=== PATIENT | male | born 1970 | race Caucasian/White ===

== ENCOUNTER 2019-12-05 15:59 | Outpatient (CLI) | payer OTHER, SELFPAY ==
[2019-12-05 16:19] LABS: Add Urine Microscopic? YES; Appearance Urine Cloudy (Clear); Bacteria Urine Trace /hpf; Bilirubin Urine Negative (Negative); Blood Urine Negative (Negative); Color Urine Yellow (Yellow); Glucose Urine UA Negative (Negative); Ketones Urine Negative (Negative); Leukocyte Esterase Ur Negative LEU/UL (NEGATIVE); Mucus Urine Rare /lpf; Nitrate Urine Negative (Negative); Protein Urine Negative (Negative); Urobilinogen Urine Negative mg/dL (<2.0); WBC Urine 0-3 /hpf (0-3)
== END 2019-12-05 16:00 | disposition home or self-care (01) ==
PROVIDERS: PCP Internal Medicine; Visit Provider Internal Medicine
DX: R31.9 Hematuria, unspecified (principal)
CPT/HCPCS: 81001

== ENCOUNTER 2019-12-17 11:03 | Outpatient (CLI) | payer OTHER, SELFPAY ==
--- NOTE | ~2019-12-17 | CT_ITS ---
EXAMINATION: CT abdomen wo con EXAM DATE: 12/17/2019 11:34 INDICATION: Ventral hernia. TECHNIQUE: Spiral CT of the abdomen was performed without contrast. Axial, coronal and sagittal bella ges were reviewed. The dose-length product (DLP) for this examination was 694.75 mGy-cm. The exposu re was tailored according to patient size (auto mA exposure control), and iterative reconstruction (A SIR) was used as additional dose reduction technique. There is no prior study for comparison. FINDINGS: There is hepatic steatosis without suspicious focal lesion identified. Spleen, adrenal glan ds, pancreas are unremarkable. Gallbladder is unremarkable. No biliary obstruction. There is 2 mm left inferior calyceal stone. There is no retroperitoneal lymphadenopathy. Small umbilical fat-co ntaining hernia. The appendix is normal. The stomach and small bowel are unremarkable. There is expected amount of c olonic stool. No free intraperitoneal gas. The heart is normal in size. There are no pericardial or pleural effusions. The lung bases are unremarkable. The bones are unremarkable. IMPRESSION: 1. Punctate left nephrolithiasis. 2. Small umbilical fat-containing hernia. 3. Hepatic steatosis. Reviewed, dictated and finalized at location A.
== END 2019-12-17 11:04 | disposition home or self-care (01) ==
PROVIDERS: PCP Internal Medicine; Visit Provider Internal Medicine
DX: K43.9 Ventral hernia without obstruction or gangrene (principal); N20.0 Calculus of kidney; K42.9 Umbilical hernia without obstruction or gangrene; K76.0 Fatty (change of) liver, not elsewhere classified
CPT/HCPCS: 74150

== ENCOUNTER → 2019-12-25 11:51 | Outpatient (REF) | payer OTHER, SELFPAY | LOC: ANHLAB 11:51 | PROVIDERS: PCP Internal Medicine; Visit Provider Nurse Practitioner | DX: L82.1 Other seborrheic keratosis (principal) | CPT/HCPCS: 88305 ==

== ENCOUNTER → 2021-02-07 01:58 | Outpatient (CLI) | payer OTHER, SELFPAY ==
[2021-02-07 17:43] LABS: SARS-CoV-2 RNA PCR Negative
== END ==
PROVIDERS: PCP Internal Medicine; Visit Provider Surgery
DX: Z01.812 Encounter for preprocedural laboratory examination (principal); Z20.822 Contact with and (suspected) exposure to COVID-19
CPT/HCPCS: C9803; U0003; U0005

== ENCOUNTER 2021-07-11 11:37 | Outpatient (CLI) | payer OTHER, SELFPAY ==
--- NOTE | 2021-07-11 11:49 | ECG_ITS ---
Measurements Intervals [place] Rate: 77 P: 42 IA: 192 QRS: 68 QRSD: 91 T: 37 QT: 364 QTc: 413 Interpretive Statements SINUS RHYTHM NORMAL ECG Electronically Signed On 07-11-2021 12:58:11 STRAWHAT SIZER by Matty Bright D.O.
== END 2021-07-11 11:38 | disposition home or self-care (01) ==
LOC: ANHCARD 11:39
PROVIDERS: PCP Internal Medicine; Visit Provider Internal Medicine
DX: I10 Essential (primary) hypertension (principal)
CPT/HCPCS: 93005

== ENCOUNTER 2021-09-27 00:37 | Day surgery (SDC) | payer OTHER, SELFPAY ==
[2021-09-21 10:06] VITALS: BMI 35.4
[2021-09-27 07:24] VITALS: BP 128/79; PULSE 85; RESP 18; TEMP 36.4; O2SAT 97
[2021-09-27] MEDS: LACTATED RINGERS 1,000 ML 150 ML IV CONT (07:35)
[2021-09-27 07:36] LABS: Glucose Point of Care 114 mg/dl (65-105)
--- NOTE | 2021-09-27 08:08 | WPDANESEPPF ---
Anes - Initial Pre Proc Eval Procedure: Operation Date: 09/27/21 08:30 Proposed Procedures p Screening Colonoscopy - Souleymane Mccoy MD Date/Time: 09/27/21 08:08 Surgeon: Souleymane Mccoy MD Pre Op Diagnosis: neoplasm screening Patient Data Age: 51 Gender: M Height: 1.78 m Weight: 110.9 kg Last Vital Signs Temp 36.4 C L 09/27/21 07:24 Pulse 85 09/27/21 07:24 Resp 18 09/27/21 07:24 BP 128/79 09/27/21 07:24 Pulse Ox 97 09/27/21 07:24 Allergies Allergy/AdvReac Type Severity Reaction Status Date / Time Penicillins Allergy Unknown Hives Verified 09/27/21 07:23 Home Medications Medication Instructions Recorded Confirmed Type ascorbic acid (vitamin C) 500 mg 500 mg PO DAILY 08/13/19 09/21/21 History capsule,extended release vitamin E (dl, acetate) 45 mg (100 100 unit PO DAILY 02/18/20 09/21/21 History unit) capsule cholecalciferol (vitamin D3) 50 mcg PO DAILY 02/01/21 09/21/21 History lisinopril 40 mg tablet 40 mg PO DAILY #90 tablet 07/11/21 09/21/21 Rx metformin 500 mg tablet 500 mg PO BID 90 Days #180 tablet 07/11/21 09/21/21 Rx rosuvastatin 5 mg tablet 5 mg PO DAILY #90 tablet 07/22/21 09/21/21 Rx amlodipine 2.5 mg tablet 2.5 mg PO DAILY #90 tablet 08/09/21 09/21/21 Rx Laboratory Tests 09/27/21 07:33 POC Capillary Glucose 114 mg/dl H mg/dl (65-105) Patient hx anesthesia problems: none Family hx anesthesia problems: none Results Review: All pre-operative results and documents have been reviewed as part of the pre-operative evaluation. [facility] Past Medical History Medical History Actinic keratosis Dyslipidemia Essential hypertension LORRIE (obstructive sleep apnea) Surgical History Surgical History History of carpal tunnel release Family History Family History Mother Family history of malignant neoplasm of breast in first degree relative Family history of Hodgkin's lymphoma Hypertension Social History Social History Smoking status: Never smoker Second hand tobacco smoke exposure: No Alcohol intake: current Drinks per week: 12 Substance use type: does not use Living arrangements: with family Spiritual care concerns: No Anes - Eval Final PreProcedure Day of Procedure 09/27/21 08:08 Patient weight: obese Heart: regular rate and rhythm Lungs: clear to auscultation Airway: Mallampati scale class II Neurological: alert and oriented Last oral intake: >/= 8 hours ASA classification: III Emergent: no Anesthetic plan: proceed Anesthesia type and monitoring: general GIVS and standard monitoring Results Review: All pre-operative results and documents have been reviewed as part of the pre-operative evaluation. Informed Consent: The patient's anesthetic plan and its attendant risks and benefits were discussed with the patient/family/POA. Questions were solicited and answers provided to the satisfaction of the patient/family/POA.
--- NOTE | 2021-09-27 08:15 | PM.HPGS ---
History of Present Illness History of Present Illness Consent: Risks, benefits, and alternatives have been discussed and questions answered. Patient agrees to proceed with procedure. Chief complaint: neoplasm screening Narrative: Ramesh Jang is a 51 year old male here for first screening colonoscopy Review of Systems Constitutional: Constitutional: Denies headache(s) and Denies weakness Eyes: Eyes: Denies blurry vision ENT: Reports Normal hearing present, Denies headache(s) and Denies neck pain Cardiovascular: Cardiovascular: Denies chest pain and Denies dyspnea Respiratory: Respiratory: Denies dyspnea Gastrointestinal: Gastrointestinal: Reports no additional gastrointestinal complaints Genitourinary: Genitourinary: Denies dysuria Musculoskeletal: Musculoskeletal: Denies neck pain Integumentary/Breasts: Skin/Breast: Denies dry skin Neurologic: Reports Normal hearing present, Denies headache(s) and Denies weakness Psychiatric: Psychiatric: Denies anxiety Endocrine: Endocrine: Denies change in body appearance Hematologic/Lymphatic: Hematologic/Lymphatic: Denies easy bleeding Allergic/Immunologic: Allergic/Immunologic: Denies urticaria [facility] Past Medical History Medical History (Updated 09/27/21 @ 08:16 by Souleymane Mccoy MD) Actinic keratosis Colon cancer screening Dyslipidemia Essential hypertension LORRIE (obstructive sleep apnea) Surgical History Surgical History History of carpal tunnel release Family History Family History Mother Family history of malignant neoplasm of breast in first degree relative Family history of Hodgkin's lymphoma Hypertension Social History Social History Smoking status: Never smoker Second hand tobacco smoke exposure: No Alcohol intake: current Drinks per week: 12 Substance use type: does not use Living arrangements: with family Spiritual care concerns: No Meds Home Medications and Allergies Home Medications Medication Instructions Recorded Confirmed Type ascorbic acid (vitamin C) 500 mg 500 mg PO DAILY 08/13/19 09/21/21 History capsule,extended release vitamin E (dl, acetate) 45 mg (100 100 unit PO DAILY 02/18/20 09/21/21 History unit) capsule cholecalciferol (vitamin D3) 50 mcg PO DAILY 02/01/21 09/21/21 History lisinopril 40 mg tablet 40 mg PO DAILY #90 tablet 07/11/21 09/21/21 Rx metformin 500 mg tablet 500 mg PO BID 90 Days #180 tablet 07/11/21 09/21/21 Rx rosuvastatin 5 mg tablet 5 mg PO DAILY #90 tablet 07/22/21 09/21/21 Rx amlodipine 2.5 mg tablet 2.5 mg PO DAILY #90 tablet 08/09/21 09/21/21 Rx Allergies Allergy/AdvReac Type Severity Reaction Status Date / Time Penicillins Allergy Unknown Hives Verified 09/27/21 07:23 Vital Signs Vital Signs - 24 hr 09/27/21 07:24 Temperature 97.5 F L Pulse Rate 85 Respiratory Rate 18 Blood Pressure 128/79 Pulse Oximetry 97 Exam Const: General: comfortable and no acute distress HENMT: General nose exam: Normal nares present Eyes: General: appearance normal, both eyes and all related structures Neck: Neck: no JVD Resp: Auscultation: clear to auscultation bilaterally Cardio: Rate: regular rate Rhythm: regular rhythm GI: Inspection: non-distended GI Palp: Yes Soft to palpation Skin: General skin exam: normal color Neuro: General: gait normal Speech: normal speech Extrem: General: normal to inspection Psych: Mental Status: mental status grossly normal Assessment and Plan Assessment and plan (1) Colon cancer screening: Code(s): Z12.11 - Encounter for screening for malignant neoplasm of colon Status: Acute Assessment and Plan: colonoscopy
[2021-09-27 08:40] VITALS: BP 113/67; PULSE 84; RESP 26; O2SAT 98
[2021-09-27 08:50] VITALS: BP 124/79; PULSE 85; RESP 20; O2SAT 97
[2021-09-27 09:00] VITALS: BP 125/79; PULSE 84; RESP 26; O2SAT 98
== END 2021-09-27 09:11 | disposition home or self-care (01) ==
PROVIDERS: PCP Internal Medicine; Visit Provider Internal Medicine Gastroenterology
PROC: 0DJD8ZZ Inspection of Lower Intestinal Tract, Via Natural or Artificial Opening Endoscopic (ICD-10-PCS; CPT 45378; principal; 2021-09-27 08:30)
DX: Z12.11 Encounter for screening for malignant neoplasm of colon (principal); D12.2 Benign neoplasm of ascending colon; K64.8 Other hemorrhoids; I10 Essential (primary) hypertension; E78.5 Hyperlipidemia, unspecified; G47.33 Obstructive sleep apnea (adult) (pediatric); Z79.84 Long term (current) use of oral hypoglycemic drugs; E66.9 Obesity, unspecified; Z68.35 Body mass index [BMI] 35.0-35.9, adult
CPT/HCPCS: 45385; 82948; 88305; J2704; J7120

== ENCOUNTER 2021-12-28 08:01 | Outpatient (CLI) | payer OTHER, SELFPAY ==
--- NOTE | ~2021-12-28 | US_ITS ---
EXAMINATION: US abdomen complete DATE: 12/28/2021 09:10 INDICATION: Fatty change of the liver TECHNIQUE: Multiple grayscale and Doppler ultrasound images of the abdomen were obtained. COMPARISON: 11/14/2016 FINDINGS: Bowel gas obscures visualization of the pancreas. The visualized portions of the pancreas a re unremarkable. The liver demonstrates increased echogenicity, heterogenous echotexture, and decreas ed through transmission. No surface nodularity. Normal hepatopetal flow in the main portal vein. The gallbladder is normal with no abnormal wall thickening, pericholecystic fluid or stones. The normal c ommon bile duct measures 5 mm. There was no sonographic Akers sign. The visualized portions of the a yessi and inferior vena cava are normal. The right kidney measures 13.1 x 5.7 x 6.6 cm. The left kidney measures 11.6 x 6.2 x 5.7 cm. The kidn eys demonstrate normal parenchymal echogenicity. There is no hydronephrosis. The spleen is normal in appearance and measures 8.7 cm. IMPRESSION: 1. Diffuse hepatic steatosis. Reviewed, dictated and finalized at location A.
== END 2021-12-28 08:02 | disposition home or self-care (01) ==
PROVIDERS: PCP Internal Medicine; Visit Provider Internal Medicine
DX: K76.0 Fatty (change of) liver, not elsewhere classified (principal); R79.89 Other specified abnormal findings of blood chemistry
CPT/HCPCS: 76700

== ENCOUNTER → 2022-07-19 16:16 | Outpatient (CLI) | payer OTHER, SELFPAY ==
--- NOTE | ~2022-07-19 | XR_ITS ---
XR lumbar spine 6V w bending DATE: 07/19/2022 16:38 INDICATION: Low back pain TECHNIQUE: AP, lateral, bilateral oblique views and coned lateral lumbosacral view. Flexion and exten deborah standing lateral views COMPARISON: None FINDINGS: There is prominent degenerative disc disease in the lower thoracic spine. Normal alignment of the lumbar spine without instability on flexion or extension. Included lower thoracic and lumbar pedicles are intact. No fracture or bone destruction, spondylolysi s or spondylolisthesis is evident. There is moderate degenerative disc disease at L3-4 and L4-5. The sacroiliac joints are intact. IMPRESSION: Moderate degenerative disc disease at L3-4 and L4-5 Prominent degenerative change in the lower thoracic spine Reviewed, dictated and finalized at location A. [employer]
== END ==
PROVIDERS: PCP Family Medicine; Visit Provider Family Medicine
DX: M51.36 Other intervertebral disc degeneration, lumbar region (principal)
CPT/HCPCS: 72114

== ENCOUNTER 2022-10-19 11:10 | Outpatient (CLI) | payer OTHER, SELFPAY ==
[2022-10-19 20:29] LABS: Kit Draw Collected
== END 2022-10-19 11:11 | disposition home or self-care (01) ==
LOC: ANHGOSHLAB 11:12
PROVIDERS: PCP Family Medicine; Visit Provider Family Medicine
DX: E11.9 Type 2 diabetes mellitus without complications (principal)
CPT/HCPCS: 36415

== ENCOUNTER 2023-05-14 13:57 | Outpatient (CLI) | payer OTHER, SELFPAY ==
[2023-05-14 19:22] LABS: Basophils Percent Auto 0.6 % (0.2-1.2); Eosinophils Absolute Auto 0.5 K/mm3 (0-0.3); Hematocrit 47.3 % (42.0-52.0); Hemoglobin 16.1 g/dL (14.0-18.0); Immature Granulocyte Absolute 0.03 K/mm3 (0.00-0.031); Immature Granulocyte Percent A 0.4 % (0-0.5); Lymphocytes Absolute Auto 1.63 K/mm3 (0.9-3.2); Lymphocytes Percent Auto 23.9 % (18.3-44.2); Mean Corpuscular Hemoglobin 33.3 pg (26-34); Mean Corpuscular Volume 97.9 fl (80-100); Mean Platelet Volume 9.8 fl (7.4-10.4); Monocytes Absolute Auto 0.6 K/mm3 (0.1-0.6); Neutrophils Percent Auto 59.1 % (45.5-73.1); Platelet Count Result 241 k/mm3 (150-375); Red Blood Count 4.83 M/mm3 (4.6-6.20); Red Cell Distribution Width 11.8 % (11.5-14.5); White Blood Count 6.8 K/mm3 (4.5-10.0)
[2023-05-14 20:30] LABS: Anion Gap 7 mmol/L (8-16); Blood Urea Nitrogen 16 mg/dL (9-20); Calcium 9.8 mg/dL (8.4-10.2); Carbon Dioxide 32 mmol/L (22-30); Chloride 96 mmol/L (98-107); Estimated Glomerular Filt Rate > 60; Glucose 156 mg/dL (65-110); Sodium 135 mmol/L (137-145)
== END 2023-05-14 13:58 | disposition home or self-care (01) ==
LOC: ANHGOSHLAB 13:58
PROVIDERS: PCP Family Medicine; Visit Provider Nurse Practitioner Family
DX: E78.2 Mixed hyperlipidemia (principal); R73.01 Impaired fasting glucose
CPT/HCPCS: 36415; 80048; 85025

== ENCOUNTER 2024-01-29 08:31 | Outpatient (CLI) | payer OTHER, SELFPAY ==
[2024-01-29 13:28] LABS: Basophils Percent Auto 0.6 % (0.2-1.2); Eosinophils Absolute Auto 0.5 K/mm3 (0-0.3); Eosinophils Percent Auto 7.5 % (0-4.4); Hematocrit 50.7 % (42.0-52.0); Hemoglobin 16.6 g/dL (14.0-18.0); Immature Granulocyte Absolute 0.02 K/mm3 (0.00-0.031); Immature Granulocyte Percent A 0.3 % (0-0.5); Mean Corpuscular HGB Conc 32.7 g/dl (32-36); Mean Corpuscular Hemoglobin 32.2 pg (26-34); Mean Corpuscular Volume 98.4 fl (80-100); Mean Platelet Volume 9.6 fl (7.4-10.4); Monocytes Absolute Auto 0.6 K/mm3 (0.1-0.6); Monocytes Percent Auto 10.4 % (2.6-8.5); Neutrophils Absolute Auto 3.4 K/mm3 (1.3-6.7); Neutrophils Percent Auto 55.2 % (45.5-73.1); Platelet Count Result 259 k/mm3 (150-375); Red Blood Count 5.15 M/mm3 (4.6-6.20); Red Cell Distribution Width 13.9 % (11.5-14.5); White Blood Count 6.2 K/mm3 (4.5-10.0)
[2024-01-29 13:29] LABS: Alanine Aminotransferase 133 U/L (6-50); Albumin Level 4.9 g/dL (3.5-5.1); Alkaline Phosphatase 57 U/L (38-126); Anion Gap 9 mmol/L (4-12); Aspartate Amino Transferase 120 U/L (17-59); Bilirubin,Total 0.9 mg/dL (0.2-1.3); Blood Urea Nitrogen 15 mg/dL (9-20); Calcium 9.8 mg/dL (8.4-10.2); Carbon Dioxide 31 mmol/L (22-30); Chloride 100 mmol/L (98-107); Cholesterol 184 mg/dL (0-200); Estimated Glomerular Filt Rate > 60; Glucose 85 mg/dL (65-110); HDL Direct 40 mg/dL; Potassium 3.8 mmol/L (3.4-5.0); Sodium 140 mmol/L (137-145); Triglycerides 194 mg/dL (<150)
[2024-01-29 13:41] LABS: LDL Cholesterol Direct 107 mg/dL
[2024-01-29 13:59] LABS: Prostate Specific Antigen 1.5 ng/mL (< OR = 4.0)
[2024-01-29 14:02] LABS: Hemoglobin A1C 5.6 % (<5.7)
== END 2024-01-29 08:32 | disposition home or self-care (01) ==
LOC: ANHGOSHLAB 08:33
PROVIDERS: PCP Family Medicine; Visit Provider Nurse Practitioner Family
DX: E78.2 Mixed hyperlipidemia (principal); K76.0 Fatty (change of) liver, not elsewhere classified; E66.9 Obesity, unspecified; Z12.5 Encounter for screening for malignant neoplasm of prostate; R73.01 Impaired fasting glucose
CPT/HCPCS: 36415; 80053; 80061; 83036; 84153; 84443; 85025; G0103

== ENCOUNTER 2024-08-05 08:54 | Outpatient (CLI) | payer OTHER, SELFPAY ==
[2024-08-05 15:42] LABS: Basophils Percent Auto 0.6 % (0.2-1.2); Eosinophils Absolute Auto 0.4 K/mm3 (0-0.3); Eosinophils Percent Auto 7.6 % (0-4.4); Hematocrit 45.5 % (42.0-52.0); Hemoglobin 15.2 g/dL (14.0-18.0); Immature Granulocyte Absolute 0.02 K/mm3 (0.00-0.031); Immature Granulocyte Percent A 0.4 % (0-0.5); Lymphocytes Absolute Auto 1.48 K/mm3 (0.9-3.2); Mean Corpuscular HGB Conc 33.4 g/dl (32-36); Mean Corpuscular Hemoglobin 32.4 pg (26-34); Mean Platelet Volume 9.7 fl (7.4-10.4); Monocytes Absolute Auto 0.6 K/mm3 (0.1-0.6); Monocytes Percent Auto 12.3 % (2.6-8.5); Neutrophils Absolute Auto 2.2 K/mm3 (1.3-6.7); Neutrophils Percent Auto 47.1 % (45.5-73.1); Platelet Count Result 232 k/mm3 (150-375); Red Blood Count 4.69 M/mm3 (4.6-6.20); Red Cell Distribution Width 12.7 % (11.5-14.5); White Blood Count 4.6 K/mm3 (4.5-10.0)
[2024-08-05 16:05] LABS: Alanine Aminotransferase 97 U/L (6-50); Albumin Level 4.8 g/dL (3.5-5.1); Alkaline Phosphatase 65 U/L (38-126); Anion Gap 7 mmol/L (4-12); Aspartate Amino Transferase 93 U/L (17-59); Bilirubin,Total 0.6 mg/dL (0.2-1.3); Blood Urea Nitrogen 13 mg/dL (9-20); Carbon Dioxide 30 mmol/L (22-30); Chloride 101 mmol/L (98-107); Cholesterol 203 mg/dL (0-200); Estimated Glomerular Filt Rate > 60; Glucose 67 mg/dL (65-110); HDL Direct 44 mg/dL; Potassium 4.3 mmol/L (3.4-5.0); Sodium 138 mmol/L (137-145); Triglycerides 189 mg/dL (<150)
[2024-08-05 16:16] LABS: LDL Cholesterol Direct 108 mg/dL
[2024-08-05 16:35] LABS: Prostate Specific Antigen 1.1 ng/mL (< OR = 4.0)
[2024-08-05 18:21] LABS: Hemoglobin A1C 5.7 % (<5.7)
[2024-08-08 14:19] LABS: Testosterone Total 367 ng/dL (250-1100)
== END 2024-08-05 08:55 | disposition home or self-care (01) ==
PROVIDERS: PCP Family Medicine; Visit Provider Family Medicine
DX: E29.1 Testicular hypofunction (principal); K76.0 Fatty (change of) liver, not elsewhere classified; Z12.5 Encounter for screening for malignant neoplasm of prostate
CPT/HCPCS: 36415; 80053; 80061; 83036; 84153; 84403; 85025; G0103

== ENCOUNTER 2025-07-27 11:09 | Outpatient (CLI) | payer OTHER, SELFPAY ==
--- NOTE | ~2025-07-27 | XR_ITS ---
EXAMINATION: XR knee LT 3V, 07/27/2025 11:31 SELF PAY COLLECTOR HISTORY: Unspecified injury of left lower leg in april pain x 2 COMPARISON: No comparisons available. Findings: No acute fracture or malalignment. No significant degenerative changes. Soft tissues unremarkable. Impression: No acute fracture or malalignment. Reviewed, dictated and finalized at location P. PAY COLLECTOR Impression: No acute fracture or malalignment.
== END 2025-07-27 11:10 | disposition home or self-care (01) ==
PROVIDERS: PCP Family Medicine; Visit Provider Nurse Practitioner Family
DX: S89.92XA Unspecified injury of left lower leg, initial encounter (principal); X58.XXXA Exposure to other specified factors, initial encounter
CPT/HCPCS: 73562

== ENCOUNTER 2025-08-17 08:17 | Outpatient (CLI) | payer OTHER, SELFPAY ==
--- NOTE | ~2025-08-17 | MR_ITS ---
EXAMINATION: MR knee LT wo con DATE: 08/17/2025 08:42 INDICATION: Left lower leg injury with worsening chronic intermittent medial left knee pain and popping with bending down TECHNIQUE: Magnetic resonance imaging (MRI) of the left knee was performed without intravenous contrast. Sequences included coronal PD-weighted FSE, coronal PD-weighted FS FSE, sagittal T2-weighted FSE, sagittal PD-weighted FS FSE and axial PD weighted fat saturated FSE. COMPARISON: None. FINDINGS: Medial compartment: Complex tear of the body and posterior horn of the medial meniscus. There is a displaced meniscal flap arising from near the posterior root which extends cephalad and lateral, posterior to the distal portion of the posterior cruciate ligament. There is a second small meniscal flap arising from the meniscal body which is subluxed peripherally and inferiorly positioned along the medial rim of the medial tibial plateau. Deep chondral ulceration at the central weightbearing medial femoral condyle with mild subarticular edema-like signal change along the medial rim. Less severe partial thickness chondral ulceration and fissuring at the anterior weightbearing medial femoral condyle. Mild partial-thickness cartilage loss with minimal surface irregularity along the medial and posterior rim of the medial tibial plateau. Lateral compartment: Lateral meniscus is normal. Articular cartilage is normal. Patellofemoral compartment: Deep chondral fissuring without degenerative subchondral changes along the trochlear groove and small portion of the immediately adjacent medial and lateral trochlea. Distal patellar chondral fissuring along the relatively shallow at the medial patellar facet and deeper at the patellar apical ridge and lateral facet with small region of subarticular edema-like signal change along the lateral most margin of the lateral facet. Ligaments and tendons: Anterior and posterior cruciate ligaments are normal. The medial collateral ligament and fibular collateral ligament complex are normal. Small enthesophytes along the anterior margin of the otherwise normal distal quadriceps tendon. The patellar tendon is normal. The visualized medial and lateral hamstring tendons as well as the iliotibial band are normal. There is mild popliteus tendinopathy without tear. Fluid: Likely reactive small left knee joint effusion. No loose osteochondral bodies identified. Moderate sized Knenedy's cyst measuring 5.4 cm craniocaudally and 3.4 x 2.1 cm in maximal transaxial dimensions. Osseous/other: Bone alignment is normal. No fracture or pathologic marrow replacing process. IMPRESSION: 1. Complex medial meniscal tear with displaced meniscal flaps. 2. 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 3. Likely reactive small left knee joint effusion and moderate-sized Kennedy's cyst. Reviewed, dictated and finalized at location A. ERY EXAMINER IMPRESSION: 1. Complex medial meniscal tear with displaced meniscal flaps. 2. Mild osteoarthritis with moderate and high-grade chondromalacia in the media l and patellofemoral compartments. 3. Likely reactive small left knee joint effusion and moderate-sized Kennedy's cy st.
== END 2025-08-17 08:18 | disposition home or self-care (01) ==
LOC: MICIMG 08:19
PROVIDERS: PCP Orthopaedic Surgery; Visit Provider Nurse Practitioner Family
DX: S83.232A Complex tear of medial meniscus, current injury, left knee, initial encounter (principal); X58.XXXA Exposure to other specified factors, initial encounter; M17.12 Unilateral primary osteoarthritis, left knee
CPT/HCPCS: 73721

== ENCOUNTER 2025-08-26 10:36 | Outpatient (CLI) | payer OTHER, SELFPAY ==
--- NOTE | 2025-08-26 10:49 | ECG_ITS ---
Test Date: 2025-08-26 10:55:23 Measurements Intervals [place] Rate: 100 P: 39 OK: 172 QRS: 66 QRSD: 89 T: 50 QT: 330 QTc: 427 Interpretive Statements SINUS TACHYCARDIA NONSPECIFIC ST ELEVATION IN ANTEROLATERAL LEADS BORDERLINE ECG No previous ECG available for comparison Electronically Signed On 08-26-2025 21:21:14 SALAD CHEF by Matty Bright D.O.
--- OUTSIDE RECORDS SUMMARY | 2025-08-26 10:49 | XMS_ITS | Clinical Summary ---
Author Organization [facility] Address [address] [place] [address] Care Team Providers Care Steel Burner Name Role Phone Андрей Bhatti Primary Care Provider [phone] Allergies Active Allergy Reactions Criticality Noted Date Comments Penicillin Hives Medium 05/03/2022 Medications amLODIPine (NORVASC) 2.5 mg tablet 04/06/2022 Active lisinopriL (PRINIVIL,ZESTRI L) 40 mg tablet 03/23/2022 Act chetna rosuvastatin (CRESTOR) 5 mg tablet 02/22/2022 Active naproxen (NAPROSYN) 500 mg tabletIndication s:Acute right hip pain Take 1 tablet (500 mg total) by mouth 2 (two) times a day as needed for pain (pain) for up to 14 days 28 tablet 05/03/2022 Active Active Problems No known active problems Surgical History Surgery Date Site/Laterality Comments ACHILLES TENDON REPAIR Medical History Medical History Date Comments Hyperlipidemia Hypertension Family History Medical History Relation Name Comments Breast cancer Mother Family history of malignant neoplasm of breast - (Added by TW Conv) Relation Name Status Comments Mother Social History Tobacco Use Types Packs/Day Years Used Date Smoking Tobacco: Never Tobacco Cessation:Counseling Given: Not Answered Personal Safety Answer Date Recorded Getting School Help Needed Not on file 11/10 Sex and Gender Information Value Date Recorded Sex Assigned at Not on file Legal Sex Male 9:41 AM CDT Gender Identity Male 05/03/2022 8:55 AM CDT Sexual Orientation Not on file Last Filed Vital Signs Vital Sign Reading Time Taken Comments Blood Pressure 133/87 05/03/2022 9:14 AM CDT Pulse 77 05/03/2022 9:14 AM CDT Temperature 36.8 C (98.3 F) 05/03/2022 9:14 AM CDT Respiratory Rate 16 05/03/2022 9:14 AM CDT Oxygen Saturation 98% 05/03/2022 9:14 AM CDT Inhaled Oxygen Concentration - - Weight 117.9 kg (260 lb) 05/03/2022 9:14 AM CDT Height 177.8 cm (5' 10) 05/03/2022 9:14 AM CDT Body Mass Index 37.31 05/03/2022 9:14 AM CDT Plan of Treatment Not on file Insurance [facility] [employer] Care Teams Steel Burner Relationship Specialty Start Date End Date Андрей Bhatti DO PCP - General Internal Medicine 05/03/22
== END 2025-08-26 10:37 | disposition home or self-care (01) ==
LOC: ANHCARD 10:38
PROVIDERS: PCP Family Medicine; Visit Provider Orthopaedic Surgery
DX: Z01.818 Encounter for other preprocedural examination (principal); R94.31 Abnormal electrocardiogram [ECG] [EKG]
CPT/HCPCS: 93005